=== PATIENT | male | born 1975 | race Caucasian/White ===

== ENCOUNTER 2017-01-20 22:12 | Emergency (ER) | payer MEDICARE ==
[~2017-01-20 22:12] MED LIST: ASPIRIN PO; BACTRIM DS TABL1 TAB PO; GLUCOTROL PO; IBUPROFEN PO; KETOPROFEN PO; LISINOPRIL PO; LOPID600 MG PO; METFORMIN PO; PROTONIX PO
== END 2017-01-21 01:55 | disposition home or self-care (01) ==
LOC: CED 22:12
DX: S90.822A Blister (nonthermal), left foot, initial encounter (principal); E11.65 Type 2 diabetes mellitus with hyperglycemia; F17.210 Nicotine dependence, cigarettes, uncomplicated; X58.XXXA Exposure to other specified factors, initial encounter; Y92.009 Unspecified place in unspecified non-institutional (private) residence as the place of occurrence of the external cause
CPT/HCPCS: 82947; 99282